=== PATIENT | female | born 1975 | race African-American/Black ===

== ENCOUNTER 2023-06-23 16:40 | Inpatient (IN) | payer SELFPAY ==
[~2023-06-23] VITALS: Ht 157.5 cm; Wt 68.0 kg
[2023-06-23] MEDS ORDERED: ONDANSETRON HCL 4MG/2ML INJ IV STA (17:14)
[2023-06-23] MEDS ORDERED: SODIUM CHLORIDE 0.9% 1,000 ML IV ONE (17:15)
[2023-06-23 18:01] LABS: BASOPHILS % 0.6 % (0.0-2.0); EOSINOPHILS % 1.4 % (0.0-5.0); HEMATOCRIT. 45.1 % (36.0-48.0); HEMOGLOBIN. 14.1 g/dL (12.0-16.0); LYMPHOCYTES % 49.6 % (20.0-50.0); MEAN CORPUSCULAR HEMOGLOBIN 29.5 pg (28.0-32.0); MEAN CORPUSCULAR HGB CONC 31.3 g/dL (31.0-37.0); MEAN CORPUSCULAR VOLUME 94.4 fL (81.0-99.0); MEAN PLATELET VOLUME 10.1 fl (7.4-10.4); MONOCYTES % 7.9 % (2.0-8.0); NEUTROPHILS % 40.5 % (40.0-76.0); PLATELET 302 x1000/uL (130-400); RED BLOOD CELL COUNT 4.78 mill/uL (4.2-5.4); RED CELL DISTRIBUTION WIDTH 13.5 % (11.6-14.6); WHITE BLOOD COUNT 7.7 x1000/uL (4.5-11.0)
[2023-06-23 18:08] LABS: PROTHROMBIN TIME 10.3 sec (9.6-11.0)
[2023-06-23 18:12] LABS: HCG SCREEN NEGATIVE
[2023-06-23 18:18] LABS: INDEX HEMOLYSI 1 (1-3); INDEX ICTERIC 1 (1-4); INDEX LIPEMIC 1 (1-3)
[2023-06-23 18:31] LABS: ALANINE AMINOTRANSFERASE 69 IU/L (13-61); ALBUMIN 4.2 g/dL (3.4-5.0); ASPARTATE AMINOTRANSFERASE 54 IU/L (15-37); BETA HYDROXYBUTYRATE 0.4 mMol/L (0.0-0.3); BILIRUBIN TOTAL 0.5 mg/dL (0.1-1.0); CALCIUM 9.7 mg/dL (8.5-10.1); CARBON DIOXIDE 23 mEq/L (21-32); CHLORIDE 98 mEq/L (98-107); CREATININE 0.6 mg/dL (0.6-1.3); ETHANOL BLOOD 46 mg/dL (<10); GLUCOSE 396 mg/dL (70-105); POTASSIUM 3.5 mEq/L (3.5-5.1); PROTEIN TOTAL 8.9 g/dL (6.0-8.3); SODIUM 134 mEq/L (136-145); TROPONIN I HIGH SENSITIVITY 6 ng/L (<54); UREA NITROGEN BLOOD 12 mg/dL (7-21)
[2023-06-24] MEDS ORDERED: ONDANSETRON HCL 4MG/2ML INJ IV NR (05:30)
[2023-06-24 08:00] VITALS: BP 147/81; PULSE 97; RESP 20; TEMP 98.6
[2023-06-24] MEDS ORDERED: ONDANSETRON HCL 4MG/2ML INJ IV PRN (08:00)
[2023-06-24] MEDS ORDERED: IPRATROPIUM/ALBUTEROL 0.5-3(2.5)MG/3ML NEB HHN PRN (08:00)
[2023-06-24] MEDS ORDERED: HYDROCODONE/ACETAMINOPHEN 5/325MG TABLET PO PRN (08:00)
[2023-06-24] MEDS ORDERED: ACETAMINOPHEN 325MG TABLET PO PRN ×2 (08:00)
[2023-06-24] MEDS ORDERED: LORAZEPAM 0.5MG TABLET PO PRN (08:00)
[2023-06-24] MEDS ORDERED: CLONIDINE 0.1MG TABLET PO PRN (08:00)
[2023-06-24] MEDS ORDERED: NALOXONE HCL 0.4MG/ML VIAL IV PRN (08:00)
[2023-06-24] MEDS ORDERED: DOCUSATE SODIUM 100MG CAPSULE PO PRN (08:00)
[2023-06-24 11:17] VITALS: BP 147/84; PULSE 97; RESP 20; TEMP 98.6
[2023-06-24 12:00] VITALS: BP 114/69; PULSE 105; RESP 20; TEMP 97.6
[2023-06-24 12:00] LABS: INDEX HEMOLYSI 1 (1-3); INDEX ICTERIC 1 (1-4); INDEX LIPEMIC 1 (1-3)
[2023-06-24] MEDS ORDERED: DEXTROSE 50% WATER 50ML SYRINGE IV PRN (12:15)
[2023-06-24 12:21] LABS: ALANINE AMINOTRANSFERASE 62 IU/L (13-61); ALBUMIN 3.7 g/dL (3.4-5.0); AMYLASE 95 IU/L (25-115); ASPARTATE AMINOTRANSFERASE 47 IU/L (15-37); BILIRUBIN DIRECT < 0.1 mg/dL (0.0-0.2); BILIRUBIN TOTAL 0.3 mg/dL (0.1-1.0); CHOLESTEROL 78 mg/dL (<200); HDL CHOLESTEROL 35 mg/dL (40-59); LDL CHOLESTEROL 31 mg/dL (5-100); PHOSPHORUS 3.3 mg/dL (2.5-4.9); T4 FREE 1.19 ng/dL (0.76-1.46); THYROID STIMULATING HORMONE 0.93 uIU/mL (0.36-3.74); TRIGLYCERIDE 248 mg/dL (0-150)
[2023-06-24] MEDS ORDERED: INFLUENZA VACCINE 05/PF 0.5 ML SYRINGE IM ONE (12:30)
[2023-06-24] MEDS: BLOOD SUGAR DIAGNOSTIC STRIP TEST SCH ×3 (12:42→21:31)
[2023-06-24] MEDS: INSULIN LISPRO 100 UNITS/ML SUBCUT SCH ×3 (12:45→21:31)
[2023-06-24 15:15] LABS: HEPATITIS B SURFACE ANTIGEN NEGATIVE
[2023-06-24] MEDS: SODIUM CHLORIDE 0.9% 1,000 ML IV SCH (15:15)
[2023-06-24 15:41] LABS: HEPATITIS C VIR.AB 0.13 INDEXVAL (0.00-0.80)
[2023-06-24 15:42] LABS: HEPATITIS B CORE AB IGM NEGATIVE
[2023-06-24 15:44] LABS: HEPATITIS A AB IGM NEGATIVE (NEGATIVE)
[2023-06-24 16:00] VITALS: BP 105/61; PULSE 112; RESP 18; TEMP 97.7
[2023-06-24] MEDS ORDERED: MAGNESIUM/ALUMINUM HYDROXIDE/SIMETHICONE 30ML UDC PO PRN (17:45)
[2023-06-24] MEDS: METOCLOPRAMIDE HCL 10MG/2ML VIAL IV SCH ×2 (18:02→23:21)
[2023-06-24] MEDS: THIAMINE HCL 100MG TABLET PO SCH (18:02)
[2023-06-24] MEDS: PANTOPRAZOLE SODIUM 40 MG/VIAL IV SCH (18:02)
[2023-06-24 20:00] VITALS: BP 127/81; PULSE 111; RESP 18; TEMP 96.9
[2023-06-24] MEDS: INSULIN GLARGINE 100 UNITS/ML SUBCUT SCH (21:31)
[2023-06-25] VITALS: BP 98/60; PULSE 100; RESP 18; TEMP 96.6
[2023-06-25 04:00] VITALS: BP 127/80; PULSE 89; RESP 19; TEMP 97.2
[2023-06-25] MEDS: SODIUM CHLORIDE 0.9% 1,000 ML IV SCH (04:08)
[2023-06-25] MEDS: METOCLOPRAMIDE HCL 10MG/2ML VIAL IV SCH ×2 (06:48→12:38)
[2023-06-25] MEDS: INSULIN LISPRO 100 UNITS/ML SUBCUT SCH ×2 (06:48→12:38)
[2023-06-25] MEDS: BLOOD SUGAR DIAGNOSTIC STRIP TEST SCH ×2 (06:48→12:31)
[2023-06-25 07:02] LABS: BASOPHILS % 0.4 % (0.0-2.0); EOSINOPHILS % 1.9 % (0.0-5.0); HEMATOCRIT. 40.6 % (36.0-48.0); HEMOGLOBIN. 13.4 g/dL (12.0-16.0); LYMPHOCYTES % 53.1 % (20.0-50.0); MEAN CORPUSCULAR HEMOGLOBIN 30.5 pg (28.0-32.0); MEAN CORPUSCULAR HGB CONC 33.2 g/dL (31.0-37.0); MEAN CORPUSCULAR VOLUME 91.9 fL (81.0-99.0); MEAN PLATELET VOLUME 10.3 fl (7.4-10.4); MONOCYTES % 9.2 % (2.0-8.0); NEUTROPHILS % 35.4 % (40.0-76.0); PLATELET 265 x1000/uL (130-400); RED BLOOD CELL COUNT 4.41 mill/uL (4.2-5.4); RED CELL DISTRIBUTION WIDTH 12.9 % (11.6-14.6); WHITE BLOOD COUNT 4.9 x1000/uL (4.5-11.0)
[2023-06-25 07:13] LABS: INDEX HEMOLYSI 1 (1-3)
[2023-06-25 07:47] LABS: FOLIC ACID (FOLATE) SERUM >20 ng/mL ng/mL (>5.38); VITAMIN B12 SERUM 552 pg/mL (211-911)
[2023-06-25 07:56] LABS: FERRITIN 88 ng/mL (10-291)
[2023-06-25 08:00] VITALS: BP 142/83; PULSE 94; RESP 20; TEMP 97.9
[2023-06-25 08:32] LABS: CHLORIDE 105 mEq/L (98-107); INDEX HEMOLYSI 1 (1-3); INDEX ICTERIC 1 (1-4); INDEX LIPEMIC 1 (1-3); POTASSIUM 4.6 mEq/L (3.5-5.1); SODIUM 138 mEq/L (136-145)
[2023-06-25 08:45] LABS: ALANINE AMINOTRANSFERASE 58 IU/L (13-61); ALBUMIN 3.7 g/dL (3.4-5.0); AMYLASE 70 IU/L (25-115); ASPARTATE AMINOTRANSFERASE 41 IU/L (15-37); BILIRUBIN DIRECT 0.1 mg/dL (0.0-0.2); BILIRUBIN TOTAL 0.4 mg/dL (0.1-1.0); CALCIUM 8.8 mg/dL (8.5-10.1); CARBON DIOXIDE 26 mEq/L (21-32); CREATININE 0.6 mg/dL (0.6-1.3); GAMMA GLUTAMYL TRANSPEPTIDASE 199 IU/L (7-32); GLUCOSE 270 mg/dL (70-105); IRON 107 ug/dL (50-175); PROTEIN TOTAL 7.8 g/dL (6.0-8.3); TOTAL IRON BINDING CAPACITY 438 ug/dL (250-450); UREA NITROGEN BLOOD 13 mg/dL (7-21)
[2023-06-25] MEDS: THIAMINE HCL 100MG TABLET PO SCH (08:48)
[2023-06-25] MEDS: PANTOPRAZOLE SODIUM 40 MG/VIAL IV SCH (08:48)
[2023-06-25] MEDS: INSULIN GLARGINE 100 UNITS/ML SUBCUT SCH (10:15)
[2023-06-25 12:00] VITALS: BP 138/75; PULSE 78; RESP 19; TEMP 98.1
[2023-06-25] MEDS ORDERED: METF-873 MT (12:58)
[2023-06-25] MEDS ORDERED: GEMF600T MT (12:58)
[2023-06-25] MEDS ORDERED: INSU100I28 SQ (12:58)
[2023-06-25 16:00] VITALS: BP 128/66; PULSE 74; RESP 20; TEMP 97.4
[2023-06-25 16:32] VITALS: BP 144/76; PULSE 78; TEMP 98.7; O2SAT 97
== END 2023-06-25 18:08 | disposition home or self-care (01) | DRG 420 ==
LOC: ER 16:40 → 8WST 06-24 00:18
PROVIDERS: ADMIT Internal Medicine; ATTEND Internal Medicine
DX: E11.65 Type 2 diabetes mellitus with hyperglycemia (principal); K76.0 Fatty (change of) liver, not elsewhere classified; E78.1 Pure hyperglyceridemia; R35.0 Frequency of micturition; R74.01 Elevation of levels of liver transaminase levels; F17.210 Nicotine dependence, cigarettes, uncomplicated; Y90.9 Presence of alcohol in blood, level not specified; F10.10 Alcohol abuse, uncomplicated; Z79.84 Long term (current) use of oral hypoglycemic drugs; Z59.7 Insufficient social insurance and welfare support; Z88.8 Allergy status to other drugs, medicaments and biological substances; Z79.899 Other long term (current) drug therapy; Z79.4 Long term (current) use of insulin; Z56.0 Unemployment, unspecified
CPT/HCPCS: 36415; 71045; 74176; 80048; 80053; 80061; 80076; 80320; 82010; 82150; 82248; 82607; 82728; 82746; 82962; 82977; 83036; 83540; 83550; 83735; 84100; 84439; 84443; 84481; 84484; 84703; 85025; 85044; 86705; 86709; 86803; 87340; 90686; 93005; 99285; C9113; J1815; J2405; J2765; J7030; G0480